=== PATIENT | male | born 1995 | race Two or more races ===

== ENCOUNTER 2022-09-15 11:28 | Emergency (ER) | payer OTHER ==
[~2022-09-15] VITALS: Ht 182.9 cm; Wt 95.3 kg
== END 2022-09-15 17:35 ==
LOC: ER 11:28
DX: S81.021A Laceration with foreign body, right knee, initial encounter (principal); W01.0XXA Fall on same level from slipping, tripping and stumbling without subsequent striking against object, initial encounter; Y93.9 Activity, unspecified; Y92.480 Sidewalk as the place of occurrence of the external cause